=== PATIENT | male | born 1980 | race Caucasian/White ===

== ENCOUNTER 2016-04-30 17:11 | Observation (INO) | payer OTHER ==
[2016-04-30] MEDS ORDERED: KETOROLAC 30 MG/1 ML SDV IVP ONE (17:43)
[2016-04-30] MEDS ORDERED: LORazepam 2 MG/ML INJ IVP ONE (17:43)
[2016-04-30] MEDS ORDERED: ONDANSETRON 4 MG/2 ML VIAL IVP ONE (17:43)
[2016-04-30] MEDS ORDERED: HYDROmorphONE/DILAUDID 1 MG/ML SYR IVP ONE (17:43)
[2016-04-30] MEDS ORDERED: NS 1,000 ML IV ONE ×2 (17:43→18:40)
--- NOTE | 2016-04-30 17:47 | EDPHY ---
H & P Stated Complaint: Lower Back pain c4-6 Fusion just released from [facility] thursday - Personal History Current Tetanus/Diphtheria Vaccine: Unsure Current Tetanus Diphtheria and Acellular Pertussis (TDAP): Unsure Tetanus Vaccine Date: Unknown - Medical/Surgical History Hx Asthma: No Hx Chronic Respiratory Disease: No Hx Diabetes: No Hx Cardiac Disease: No Hx Renal Disease: No Hx Cirrhosis: No Hx Alcoholism: No Hx HIV/AIDS: No Hx Splenectomy or Spleen Trauma: No Other PMH: C4-6 fusion , HAS BACK STIMULATOR - Social History Smoking Status: Current every day smoker Time Seen by Provider: 04/30/16 17:28 HPI/ROS: CHIEF COMPLAINT: Intractable low back pain HISTORY OF PRESENT ILLNESS: 36-year-old male with history of chronic back pain since 2008, history of multiple spinal surgeries, spinal stimulator, in the ER via private vehicle with mother complaining of acute exacerbation of his Chronic low back pain with left lower extremity radiculopathy. He was discharged from [facility] 2 days ago for same complaint, states that he is not sure what his next steps are supposed to be and that he has uncontrolled pain with his current regimen of ibuprofen and oxycodone, has previously been to the [facility]. Saw his PCP today and was referred to ER. This feels same as his chronic back pain. Denies: Incontinence, retention, saddle anesthesia, fever, chills, acute trauma or fall , foot drop. PRIMARY CARE PROVIDER: Dr. Jose Paez REVIEW OF SYSTEMS: A ten point review of systems was performed and is negative with the exception of the items mentioned in the HPI PAST MEDICAL & SURGICAL HISTORY: Chronic low back pain. Depression. Spinal stimulator. SOCIAL HISTORY: positive tobacco PHYSICAL EXAM (Prior to examination, patient consented to physical exam, hands were washed and my usual and customary physical exam procedures followed) 1) GENERAL: Well-developed, well-nourished, alert and oriented. Appears uncomfortable . 2) HEAD: Normocephalic, atraumatic 3) HEENT: Pupils equal, round, reactive to light bilaterally. Sclera anicteric. 4) NECK: Full range of motion, no meningeal signs. 5) LUNGS: Clear auscultation bilaterally, no wheezes, no rhonchi, no retractions. 6) HEART: Regular rate and rhythm, no murmur, no heave, no gallop. 7) ABDOMEN: No guarding, no rebound, no focal tenderness, negative McBurney's, negative Garsia's, negative Rovsing's, negative peritoneal sign, 8) MUSCULOSKELETAL: Moving all extremities, no focal areas of tenderness, no obvious trauma. No peripheral edema or discoloration. 9) BACK: multiple scars noted. Reproducible pain with range of motion at the waist.. No CVA tenderness, no midline vertebral tenderness, no fluctuance, no step-off, no obvious trauma, no visual or palpable abnormality. Patella, Achilles reflexes intact to bilateral strength 5/5 10) SKIN: No rash, no petechiae. 11) NEURO: Awake, alert, and oriented to person, place and time. Answers questions appropriately. DIFFERENTIAL DIAGNOSIS: In no particular order, including but not limited to, fracture, sprain/strain, cauda equina, spinal infectious etiology. (Jose Marie) Constitutional: Initial Vital Signs Temperature (C) 36.9 C 04/30/16 17:13 Heart Rate 110 H 04/30/16 17:13 Respiratory Rate 16 04/30/16 17:13 Blood Pressure 174/80 H 04/30/16 17:13 O2 Sat (%) 93 04/30/16 17:13 O2 Delivery Mode Room Air Allergies/Adverse Reactions: Sulfa (Sulfonamide Antibiotics) Allergy (Verified 03/31/12 13:46) Hives Home Medications: Medication Instructions Recorded Diazepam [Diazepam] 2 mg PO BID PRN 04/30/16 Duloxetine HCl [Duloxetine HCl] 30 mg PO DAILY 04/30/16 Sertraline HCl [Zoloft 100mg (*)] 100 mg PO DAILY 04/30/16 oxyCODONE HCL [Oxycodone HCl] 5 mg PO Q4H PRN 04/30/16 oxyCODONE HCL [Oxycontin] 20 mg PO BID 04/30/16 Medical Decision Making ED Course/Re-evaluation: 5:30 p.m.:Old medical records via [employer] reviewed including recent hospitalization [facility]. Discussed case Dr. Abdirahman Swan in the ER. At this time I think that cauda equina and/or spinal infectious etiology is less than likely in this patient as he is neurologically intact lower extremities. Were unable to perform an MRI on this patient due to his implanted spinal stimulator. Will provide analgesia and reassess 6:40 p.m.: Re-evaluation after IV Toradol, Dilaudid, Ativan. He is complaining of continued pain. He does not feel he is able to be discharged home. Plan will be admission to the hospitalist 6:48 p.m.: Consultation with hospitalist Dr. Lange will admit patient. ( Jose Marie) Other Provider: PHYSICIAN DOCUMENTATION: The patient was evaluated and managed by the Physician Customer Solutions Representative. My co- signature indicates that I have reviewed this chart and I agree with the findings and plan of care as documented. I am the secondary supervising physician. (Abdirahman Swan) - Data Points Laboratory Results: Laboratory Results 04/30/16 18:05 04/30/16 18:05 04/30/16 18:05 WBC 15.78 H 10^3/uL (3.80-9.50) RBC 6.54 H 10^6/uL (4.40-6.38) Hgb 14.2 g/dL (13.7-17.5) Hct 43.5 % (40.0-51.0) MCV 66.5 L fL (81.5-99.8) MCH 21.7 L pg (27.9-34.1) MCHC 32.6 g/dL (32.4-36.7) RDW 15.4 H % (11.5-15.2) Plt Count 396 10^3/uL (150-400) MPV 9.4 fL (8.7-11.7) Neut % (Auto) 71.3 % (39.3-74.2) Lymph % (Auto) 16.7 % (15.0-45.0) [place] % (Auto) 9.5 % (4.5-13.0) Eos % (Auto) 1.5 % (0.6-7.6) Baso % (Auto) 0.6 % (0.3-1.7) Nucleat RBC Rel Count 0.0 % (0.0-0.2) Absolute Neuts (auto) 11.26 H 10^3/uL (1.70-6.50) Absolute Lymphs (auto) 2.63 10^3/uL (1.00-3.00) Absolute Monos (auto) 1.50 H 10^3/uL (0.30-0.80) Absolute Eos (auto) 0.24 10^3/uL (0.03-0.40) Absolute Basos (auto) 0.09 10^3/uL (0.02-0.10) Absolute Nucleated RBC 0.00 10^3/uL (0-0.01) Immature Gran % 0.4 % (0.0-1.1) Immature Gran # 0.06 10^3/uL (0.00-0.10) Platelet Estimate ADEQUATE (ADEQ) Polychromasia 1+ H Microcytic Cells 2+ H Tear Drop Cells 1+ H Elliptocytes 1+ H Keratocytes 1+ H Smear Review By Pending PT 13.3 SEC (12.0-15.0) INR 1.02 (0.83-1.16) Sodium 137 mEq/L (134-144) Potassium 4.3 mEq/L (3.5-5.2) Chloride 100 mEq/L (97-110) Carbon Dioxide 21 L mEq/l (22-31) Anion Gap 16 mEq/L (8-16) BUN 26 H mg/dL (7-23) Creatinine 0.9 mg/dL (0.7-1.3) Estimated GFR > 60 Glucose 90 mg/dL (70-100) Calcium 9.7 mg/dL (8.5-10.4) Medications Given: Discontinued Medications Hydromorphone HCl (Dilaudid) 1 mg IVP EDNOW ONE Stop: 04/30/16 17:44 Last Admin: 04/30/16 18:16 Dose: 1 mg Sodium Chloride (Ns) 1,000 mls @ 0 mls/hr IV ONCE ONE PRN Reason: Wide Open Stop: 04/30/16 17:44 Last Admin: 04/30/16 18:17 Dose: 1,000 mls Sodium Chloride (Ns) 1,000 mls @ 0 mls/hr IV ONCE ONE PRN Reason: Wide Open Stop: 04/30/16 18:41 Last Admin: 04/30/16 19:55 Dose: 1,000 mls Ketorolac Tromethamine (Toradol) 30 mg IVP EDNOW ONE Stop: 04/30/16 17:44 Last Admin: 04/30/16 18:17 Dose: 30 mg Lorazepam (Ativan Injection) 1 mg IVP EDNOW ONE Stop: 04/30/16 17:44 Last Admin: 04/30/16 18:17 Dose: 1 mg Ondansetron HCl (Zofran) 4 mg IVP EDNOW ONE Stop: 04/30/16 17:44 Last Admin: 04/30/16 18:18 Dose: 4 mg
[2016-04-30 18:26] LABS: % IMMATURE GRANULYOCYTES 0.4 % (0.0-1.1); ABSOLUTE IMMATURE GRANULOCYTES 0.06 10^3/uL (0.00-0.10); ADD DIFF? NO; ADD MORPH? YES; ADD SCAN? NO; ATYPICAL LYMPHOCYTE FLAG 0 (0-99); FRAGMENT RBC FLAG 20 (0-99); HEMATOCRIT 43.5 % (40.0-51.0); HEMOGLOBIN 14.2 g/dL (13.7-17.5); LEFT SHIFT FLG 0 (0-99); LIPEMIA HEMOLYSIS FLAG 80 (0-99); MEAN CELL HEMOGLOBIN 21.7 pg (27.9-34.1); MEAN CELL HEMOGLOBIN CONCENTR. 32.6 g/dL (32.4-36.7); MEAN PLATELET VOLUME 9.4 fL (8.7-11.7); PLATELET CLUMPS FLAG 0 (0-99); PLATELET COUNT 396 10^3/uL (150-400); RED BLOOD CELL COUNT 6.54 10^6/uL (4.40-6.38); RED CELL DISTRIBUTION WIDTH 15.4 % (11.5-15.2)
[2016-04-30 18:28] LABS: MEAN CELL VOLUME 66.5 fL (81.5-99.8)
[2016-04-30 18:38] LABS: ANION GAP 16 mEq/L (8-16); CARBON DIOXIDE 21 mEq/l (22-31); CHLORIDE 100 mEq/L (97-110); GLUCOSE 90 mg/dL (70-100); POTASSIUM 4.3 mEq/L (3.5-5.2); SODIUM 137 mEq/L (134-144)
[2016-04-30 18:39] LABS: CALCIUM 9.7 mg/dL (8.5-10.4); CREATININE 0.9 mg/dL (0.7-1.3); GLOMERULAR FILTRATION RATE > 60
[2016-04-30 18:58] LABS: ELLIPTOCYTES 1+; KERATOCYTES 1+; MICROCYTES 2+; PLATELET ESTIMATE ADEQUATE (ADEQ); POLYCHROMASIA 1+
[2016-04-30] MEDS ORDERED: LORazepam 2 MG/ML INJ IVP PRN (19:20)
[2016-04-30] MEDS ORDERED: TEMAZEPAM 15 MG CAP PO PRN (19:20)
[2016-04-30] MEDS ORDERED: HYDROmorphONE/DILAUDID 1 MG/ML SYR IVP PRN (19:20)
[2016-04-30] MEDS ORDERED: ONDANSETRON 4 MG/2 ML VIAL IVP PRN (19:20)
[2016-04-30] MEDS ORDERED: ACETAMINOPHEN 500 MG TAB PO PRN (19:20)
[2016-04-30] MEDS ORDERED: ONDANSETRON DISINTEGRATING 4 MG TAB PO PRN (19:20)
[2016-04-30] MEDS ORDERED: DIAZEPAM 2 MG TAB PO PRN (19:23)
[2016-04-30 19:34] LABS: INR 1.02 (0.83-1.16); PROTIME(PATIENT) 13.3 SEC (12.0-15.0)
[2016-04-30] MEDS ORDERED: oxyCODONE IR 5 MG TAB ONE (19:37)
[2016-04-30] MEDS ORDERED: DIAZEPAM 5 MG TAB ONE (19:37)
[2016-04-30] MEDS: oxyCODONE IR 5 MG TAB PO PRN (19:50)
--- NOTE | 2016-04-30 20:22 | GHP ---
[f rep st] HISTORY AND PHYSICAL DATE OF ADMISSION: 04/30/2016 DATE OF EVALUATION: 04/30/2016 DATE OF EVALUATION: 04/30/2016. CHIEF COMPLAINT: Back pain. HISTORY OF PRESENT ILLNESS: This is a 36-year-old man with acute on chronic back pain. He was admit bhavin to [facility] on 04/20/2017, discharged on 04/28/2016, 2 days prior to admission. He has a thoracic stimulator in place. Prior to this hospitalization, he had been off narcotics [facility] e the beginning of 2015. There was nothing clear that triggered this. Those symptoms began when he was in a car. There was no preceding trauma. During that admission, he underwent CT myelogram which showed, per his report, impingement at the L5- S1 level. He underwent an epidural steroid injection with mild improvement in his symptoms. He was discharged on OxyContin, 20 mg p.o. twice daily, as well as oxycodone 5 mg p.r.n. He had also been s tarted on Cymbalta. He followed up with his primary care physician, Dr. Paez, today who sent him i nto the ED for further evaluation given his uncontrolled pain. He tells me that he had a fever while in the hospital, but none since. He has not lost any weight. He has no bowel or bladder incontinence. He has some weakness down the left leg. He has no saddle a nesthesia. PAST MEDICAL/SURGICAL HISTORY: 1. Depression. 2. Low back pain and radiculopathy status post electronic stimulator placements in the thoracic spin e. 3. Tobacco abuse. MEDICATIONS: Please see medication reconciliation. ALLERGIES: Sulfa. FAMILY HISTORY: He is adopted. SOCIAL HISTORY: He rarely drinks. He smokes tobacco as well as marijuana. No other drugs. REVIEW OF SYSTEMS: A 10-point review of systems is conducted and is negative, except per HPI. PHYSICAL EXAM: VITAL SIGNS: Blood pressure is 174/80, heart rate is 110, respiration rate 16, satur ating 93% on room air. Temperature is 36.9. GENERAL: The patient is a very pleasant man who appear s quite uncomfortable, writhing in bed. HEENT: Shows him to be normocephalic, atraumatic. CARDIOVA SCULAR: Exam shows regular rate and rhythm. No murmurs, rubs or gallops. PULMONARY: Shows lungs c lear to auscultation bilaterally. ABDOMEN: Soft, nontender, nondistended. SKIN: Shows no rash. G U: Exam shows no De Paz. NEUROLOGIC: Exam shows him to be alert and oriented x3. He is moving all extremities. Mildly weak in the left leg. Sensation is intact in the bilateral lower extremities. Patellar reflexes are 2+ and symmetric. BACK: Exam shows him to have some mild tenderness over the low spine area. There is nothing clearly pinpoint. PSYCHIATRIC: Exam shows normal mood and affect. LABS: White count is 15.7, hemoglobin 14, MCV is 66. Base metabolic panel is relatively unremarkabl e. DATA: 1. I discussed this with Jung Campa in the ED. Will admit for pain control. 2. I reviewed his old records from [facility], summarized in the HPI. IMPRESSION AND PLAN: A 36-year-old man with acute on chronic low back pain. 1. Acute on chronic low back pain: Given that his pain has worsened since he was discharged, I will repeat a CT scan. He cannot get an MRI given his stimulator in place. I wonder if he would benefit from another injection. He has seen Dr. Dorantes previously for surgeries, would be reasonable to consult her if she is on-call. He had [facility]. Jay benítez, will provide both IV and p.o. pain control. I have given him Toradol, scheduled Tylenol. Restart ed gabapentin. We will continue with Cymbalta. 2. Depression: Continue Cymbalta. 3. Tobacco abuse: Nicotine patch. /[id number]/MODL
--- NOTE | 2016-04-30 21:01 | CT ---
CT of the Lumbar Spine, Without Contrast History: Low back pain. Technique: Volumetric axial CT images of the lumbar spine are obtained and are reformatted in the sa gittal and coronal planes. Dose reduction techniques are utilized. Comparison examination: November 20, 2010. Findings: Progressive intervertebral disk height loss at L5-S1 from the prior study is compatible wi th increasing degenerative disk disease. Stable degenerative changes are present at T12-L1. No frac ture or subluxation. No evidence of severe central canal stenosis throughout the examination. Bone density appears unremarkable. There are epidural stimulating wires located in the posterior subcutan eous tissues over the upper lumbar region. Impression: Progressive features of degenerative disk disease and intervertebral disk height loss at L5-S1, otherwise unchanged from November 20, 2010.
[2016-05-01] MEDS: NICOTINE 21 MG/24 HR PATCH TD SCH ×2 (00:47→09:14)
[2016-05-01] MEDS: GABAPENTIN 300 MG CAP PO SCH ×3 (00:47→16:57)
[2016-05-01] MEDS: KETOROLAC 15 MG/1 ML SDV IVP SCH ×3 (00:48→11:49)
[2016-05-01] MEDS: oxyCODONE IR 5 MG TAB PO PRN ×2 (02:58→15:30)
[2016-05-01 06:03] LABS: ANION GAP 11 mEq/L (8-16); CALCIUM 8.8 mg/dL (8.5-10.4); CARBON DIOXIDE 22 mEq/l (22-31); CHLORIDE 106 mEq/L (97-110); CREATININE 0.8 mg/dL (0.7-1.3); GLOMERULAR FILTRATION RATE > 60; GLUCOSE 102 mg/dL (70-100); POTASSIUM 4.4 mEq/L (3.5-5.2); SODIUM 139 mEq/L (134-144)
[2016-05-01] MEDS ORDERED: DULoxetine 30 MG CAP PO SCH (09:00)
[2016-05-01 11:18] VITALS: RESP 18
--- NOTE | 2016-05-01 14:20 | GCON ---
[f rep st] CONSULTATION NEUROSURGERY CONSULTATION CHIEF COMPLAINT: Back pain. HISTORY OF PRESENT ILLNESS: The patient is a 36-year-old male patient with a prior history of chronic back pain, who has a thoracic spinal cord stimulator in place. He was recently admitted at [facility], where he was followed by Dr. Ojeda. He underwent a CT myelogram, which showed some left- sided foraminal stenosis at the L5-S1 level. We attempted to manage his pain conservatively with medications, however, it persisted, and he subsequently underwent an epidural steroid injection, and was discharged by the internal medicine service at [facility]. The patient was discharged from [facility] April 28, and then re-presented at [facility] and was admitted for back pain on April 30, 2016. On examination, the patient is resting in his bedside chair, dozing on and off. He states that the injection did help his pain temporarily, but then the pain seems to have worsened again. He has ice packs on both of his feet. He denies any new incontinence, nausea, vomiting, worsening numbness or tingling. PAST MEDICAL HISTORY: Depression, low back pain and radiculopathy, tobacco use. MEDICATIONS: Please see the home meds. ALLERGIES: Sulfa. FAMILY HISTORY: Patient is adopted. SOCIAL HISTORY: He smokes tobacco as well as marijuana. No other drugs. He rarely drinks. REVIEW OF SYSTEMS: Please see above mentioned in the HPI. PHYSICAL EXAMINATION: VITAL SIGNS: Blood pressure is 140/83, heart rate 87, respirations 18, O2 saturation is 96% on room air. Temperature is 36.6. GENERAL: Well-developed, well-nourished male patient in no acute distress. NEUROLOGIC: He is somewhat somnolent. He moves all extremities. Motor examination of bilateral lower extremities is 5/5 for hip flexion, extension, knee plantar and dorsiflexion. He has intact sensation throughout the normal dermatomal distribution of his body. LABORATORY: White blood cells 15.78, red blood cells 6.54, hemoglobin 14.2, hematocrit 43.5, RDW is 15.4, platelet count is 396. PT is 13.3, INR 1.02. Sodium 139, potassium 4.4, chloride 106, carbon dioxide 22, anion gap 11, BUN 22 , creatinine 0.8, GFR greater than 60, glucose 102, calcium, 8.8. Lumbar spine CT, impression: Progressive features of degenerative disk disease and intervertebral disk height loss at L5-S1. Otherwise, unchanged from November 20, 2010. IMPRESSION: This is a 36-year-old male patient with a history of chronic low back pain, status post spinal cord stimulator placement. 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 PLAN: I have seen and examined the patient today. I have discussed the patient with Dr. Eng, who will be in to see the patient later today. Dr. Ojeda has previously been managing this patient's care, and we have been waiting to see him for outpatient followup to determine definitive treatment. It is certainly possible he may require surgical intervention, but at this time he does appear comfortable, and it would be reasonable for him to discharge and follow up with us as an outpatient. It is possible that he will get more relief as the steroid injection has a longer time to work. Would optimize his pain medications while he is inpatient and then he can keep his outpatient followup with Dr. Ojeda. Please contact the neurosurgery service if any additional questions or concerns. /[id number]/MODL MTDD
--- NOTE | 2016-05-01 16:11 | PDIAF ---
- Diagnosis Diagnosis: back pain Code Status: Full Code - Medication Management Discharge Medications: Medications to Continue on Transfer Diazepam 2 mg PO BID PRN 04/30/16 [Last Taken Unknown] Duloxetine HCl 30 mg PO DAILY 04/30/16 [Last Taken Unknown] Sertraline HCl [Zoloft 100mg (*)] 100 mg PO DAILY 04/30/16 [Last Taken Unknown] oxyCODONE HCL [Oxycodone HCl] 5 mg PO Q4H PRN 04/30/16 [Last Taken Unknown] oxyCODONE HCL [Oxycontin] 20 mg PO BID 04/30/16 [Last Taken Unknown] Acetaminophen [Tylenol ES 500 mg (*)] 1,000 mg PO Q8 PRN #0 tab 05/01/16 [Last Taken Unknown] Gabapentin [Neurontin 300 MG (*)] 300 mg PO TID #90 cap 05/01/16 [Last Taken Unknown] Nicotine [Nicoderm Cq 21 mg (*)] 21 mg TD DAILY #0 patch 05/01/16 [Last Taken Unknown] Discharge Medications: Refer to the Discharge Home Medication list for PRN reason. PICC Care - Routine: N/A - Orders Services needed: Home Care, Physical Therapy, Occupational Therapy Home Care Face to Face: I certify that this patient was under my care and that I had the required [id number] encounter meeting the encounter requirements on the discharge day. My findings support the fact that the patient is homebound as defined in CMS Chapter 7 Medicare Benefits Manual 30.1.1, The condition of the patient is such that there exists a normal inability to leave home and consequently, leaving home would require a considerable and taxing effort. - Follow Up Care Current Providers and Referrals: Jose Paez MD [Primary Care Provider] - Anitha Wong DO [Doctor of Osteopathy] -
--- NOTE | 2016-05-01 16:41 | GDS ---
[f rep st] DISCHARGE SUMMARY DISCHARGE DIAGNOSES: Back pain. PHYSICAL EXAM: GENERAL: The patient is alert. VITAL SIGNS: Afebrile at 36.6. Pulse is 87. Respi ratory rate is 18. Blood pressure is 140/83, saturating 96% on room air. I have seen and evaluated the patient on the day of discharge. HOSPITAL COURSE: The patient is a 36-year-old male admitted to the hospital secondary to back pain. During this hospitalization, he received a CT scan of his lumbar spine as well as a neurosurgery con sult. The patient was initiated on Neurontin, and a prescription has been provided for him at the ti me of disposition. It has been recommended that he follow up in the outpatient setting with Dr. Laisha curtis of Neurosurgery. He is in agreement with this plan. I have discussed the patient's disposition with the continuous pillowcase cutter, who will arrange home health care with a physical therapist and occupational t herapist at home for the patient given his acute back pain. There are no pending studies. DISCHARGE MEDICATIONS: Please refer to EMR form. I have provided the patient a prescription for Blanca rontin 300 mg t.i.d., #90, and to continue his previously prescribed home medications. I have not pr ovided him any narcotics at the time of disposition, and he should follow with his primary care physi sonja or neurosurgery for further narcotic prescriptions. I spent greater than 35 minutes in the care, coordination, and management of this patient's dispositi on. /[id number]/MODL
[2016-05-01 18:13] VITALS: BP 149/79; PULSE 82; TEMP 98.1; O2SAT 99
== END 2016-05-01 17:59 | disposition home health service (06) ==
LOC: INTOOBSV 18:46 → F3E 20:23
PROVIDERS: ADMIT Student in an Organized Health Care Education/Training Program; ATTEND Student in an Organized Health Care Education/Training Program
DX: M51.16 Intervertebral disc disorders with radiculopathy, lumbar region (principal); F32.9 Major depressive disorder, single episode, unspecified; F17.210 Nicotine dependence, cigarettes, uncomplicated; Z98.1 Arthrodesis status; Z97.8 Presence of other specified devices
CPT/HCPCS: 72131; 97161; 97165; G0378; G8978; G8979; G8987; G8988; J1170; J1885; J2405